=== PATIENT | female | born 1945 | race Caucasian/White ===

== ENCOUNTER → 2021-06-27 | Outpatient (CLI) | payer SELFPAY | LOC: LAB 11:03 | PROVIDERS: ATTEND Nurse Practitioner Community Health | DX: Z23 Encounter for immunization (principal) | CPT/HCPCS: 36415; 86480; 87491; 87591 ==

== ENCOUNTER → 2021-06-28 | Outpatient (CLI) | payer SELFPAY | LOC: LABNPT 10:05 | DX: Z23 Encounter for immunization (principal) | CPT/HCPCS: 86780 ==